=== PATIENT | female | born 1995 | race Caucasian/White ===

== ENCOUNTER 2025-08-07 02:21 | Emergency (ER) | payer MEDICAID, SELFPAY ==
--- NOTE | ~2025-08-07 | XR_ITS ---
Examination: XR chest 1V portable Clinical History: sob Comparison: None Technique: Portable AP Findings: Heart size normal. Lungs clear. No acute bony abnormality. IMPRESSION: 1. No acute cardiopulmonary findings given portable technique. Reviewed, dictated and finalized at location R.
--- OUTSIDE RECORDS SUMMARY | 2025-08-07 02:24 | XMS_ITS | Patient Health Record ---
Author Organization [facility] Address [address] [place] [address] Care Team Providers Care Delivery Department Supervisor Name Role Phone Triny Medina Unavailable [phone] Reason For Referral No Information Social History Tobacco Use: Social History Observation Description Date Details (start date - stop date) Former Smoker NA - NA PRAPARE Question Answer Notes Date Completed/Updated: 06/12/2025 What is your current housing situation? I do not have housing (staying with others, in a hotel, in a mcc, living outside on the street, on a beach, or in a park) Are you worried about losing your housing? No What is the highest level of school that you have finished? 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 Check all that apply I do not have problems meeting my needs Has lack of transportation k ept you from medical appointments, meetings, work or from getting things needed for daily living? No How often do you see or talk to people that you care about and feel close to? (For example: talking to friends on the phone, visiting friends or family, going to mosque or club meetings) 3 to 5 times a week How stressed are you? Stress is when someone feels tense, nervous, anxious, or can\t sleep at night because their mind is troubled Not at all In the past year have you sp ent more than 2 nights in a row in a custodial, senior living, group home center, or juvenile correctional facility? No Are you a refugee? No What country are you from? [place] Do you feel physically and e motionally safe where you currently live? Yes In the past year, have you b een afraid of your partner or ex-partner? No PRAPARE Score: 3 Tobacco Control (Standard) Question Answer Notes Tobacco use: Former smoker Problems Problem Type SNOMED Code ICD Code Onset Dates Problem Status W/U Status Risk Notes Problem Major depression single episode, in partial remission (17875508) Major depressive disorder in partial remission (F32.4) Active confirmed Encounters Encounter Location Date Provider Diagnosis [address] [place] [address] 06/12/2025 Triny Medina Major depressive disorder in partial remission F32.4 Assessments Encounter Date Diagnosis (ICD Code) Assessment Notes Treatment Notes Treatment Clinical Notes Section Notes 06/12/2025 Major depressive disorder in partial remission (ICD-10 - F32.4) 06/12/2025 Other Clinician met w ith client to assess needs for additional services. Clinician gathered information regarding historical presentation of mental health and substance use symptoms including withdrawal, psychiatric hospitalization history and presenting concern. Clinician conducted PHQ9 and CSSRS assessments as well as social drivers of health screening for the purposes of identifying additional service needs. Plan Of Treatment No Information Insurance Providers Payer Name Payer Address Payer Phone Subscriber Number Group Number Insured Name Patient Relationship to Insured Coverage Start Date Coverage End Date Nereida George [facility] Telehealth Attn Claims Department [address] [place] [address] [id number] Abigail Hogan Self - patient is the insured 5
[2025-08-07 02:30] VITALS: BP 111/81; PULSE 88; RESP 19; TEMP 36.4; O2SAT 100
--- NOTE | 2025-08-07 03:08 | ED_ITS ---
HPI - SOB/Dyspnea General Chief Complaint: Shortness of Breath/Dyspnea Stated Complaint: sob / body aches Time Seen by Provider: 08/07/25 02:31 History of Present Illness HPI Narrative: 30-year-old otherwise healthy female presenting to the emergency department today with several days of shortness of breath, nonproductive cough, sore throat, subjective flu-like symptoms. No sick contacts. States that she coughs frequently with a deep breath and has a rattling in her chest. Subjective fever and chills but no measurable temperature at home. No nausea, vomiting, diarrhea, chest pain. Was otherwise in her normal state of health. No around her with similar symptoms. Has a history of asthma has been using her nebulizer at home with some minimal improvement in symptoms. Taking arje-oex-ontthrj cough medicines without much improvement. Related Data Allergies Allergy/AdvReac Type Severity Reaction Status Date / Time Penicillins Allergy Mild hives Verified 08/07/25 02:24 ciprofloxacin Allergy hive Verified 08/07/25 02:24 Sulfa (Sulfonamide Allergy Hives Verified 08/07/25 02:24 Antibiotics) CIPROFLOXACIN HCL Allergy Intermediate Hives Uncoded 08/07/25 02:24 Review of Systems Review of Systems: As reviewed above in HPI Exam Narrative: GENERAL: [Well-appearing, well-nourished, and in no acute distress.] HEAD: [Normocephalic, atraumatic.] EYES: [PERRLA and EOMI.] ENT: Nares clear, no rhinorrhea or epistaxis. Mucous membranes moist. NECK: Supple. CHEST: Coarse breath sounds in the large airways, no wheezing or rales. No tachypnea. Coughing infrequently throughout the examination nonproductive. HEART: [Regular rate and rhythm]. No murmur heard. [Normal peripheral pulses.] ABDOMEN: [Soft, nondistended], [nontender], [No rigidity or guarding] EXTREMITIES: Normal range of motion. [No edema.] SKIN: Warm, dry, no rash. NEURO: [No focal deficits]. Alert and oriented [x3.] PSYCH: [Normal mood and affect.] Course Vital Signs Vital signs: Vital Signs Temperature 36.4 C 08/07/25 02:30 Pulse Rate 88 08/07/25 02:30 Respiratory Rate 19 08/07/25 02:30 Blood Pressure 111/81 08/07/25 02:30 Pulse Oximetry 100 08/07/25 02:30 Temperature 36.4 C 08/07/25 02:30 Pulse Rate 88 08/07/25 02:30 Respiratory Rate 19 08/07/25 02:30 Blood Pressure 111/81 08/07/25 02:30 Pulse Oximetry 100 08/07/25 02:30 MDM - SOB/Dyspnea MDM Narrative Medical decision making narrative: 30-year-old otherwise healthy female presenting to the emergency department today with several days of shortness of breath, nonproductive cough, sore throat, subjective flu-like symptoms. No sick contacts. States that she coughs frequently with a deep breath and has a rattling in her chest. Subjective fever and chills but no measurable temperature at home. No nausea, vomiting, diarrhea, chest pain. Was otherwise in her normal state of health. No around her with similar symptoms. Has a history of asthma has been using her nebulizer at home with some minimal improvement in symptoms. Taking sgkn-fvu-cdkrbbi cough medicines without much improvement. Patient has a nonproductive cough that sounds very congested and does have coarse breath sounds in the large airways. No wheezing or retractions. Vital signs are reassuring without any tachycardia, tachypnea, fever, hypoxemia or blood pressure concerns. Likely viral syndrome or viral illness, no posterior oropharyngeal erythema or swelling. No difficulty breathing at rest and symptoms exacerbated with a deep breath. Less likely pneumonia. No wheezing or signs of asthma exacerbation. She was given some Decadron for symptom control as well as pseudoephedrine and loratadine. Chest x-ray and viral panel swabs obtained. 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 Viral panel swabs negative, chest x-ray shows no consolidations. Patient will be treated for viral bronchitis and safely discharged home at this time. Medical Records Attestation: I reviewed the patient's medical records. Lab Data Attestation: I reviewed the patient's lab results. Labs: Lab Results 08/07/25 Range/Units 02:41 Influenza A (RT-PCR) Negative (Negative) Influenza B (RT-PCR) Negative (Negative) RSV (RT-PCR) Negative (Negative) SARS-CoV-2 RNA (RT-PCR) Negative (Negative) Imaging Data Attestation: I personally reviewed and interpreted this imaging study as follows: My impression: No consolidations. No pneumothorax. Discharge Plan Discharge Clinical Impression: Acute bronchitis with asthma Patient Disposition: Home Condition: Stable Instructions: Antibiotic Form, Acute Bronchitis (ED) Additional Instructions: No signs of pneumonia on your chest x-ray. Your viral panel swabs are negative. Symptoms consistent with viral bronchitis. We will treat this with anti- inflammatories, cough suppressing medications and decongestants. We gave you a steroid dose here which will help and his long-acting. Follow-up with regular primary care provider. Return with any emergencies. Patient Language: Estonian Prescriptions: New ibuprofen 600 mg tablet 600 mg PO TID PRN (Reason: pain) Qty: 20 0RF guaifenesin [Mucinex] 1,200 mg tablet extended release 12hr 1,200 mg PO Q12H Qty: 20 0RF benzonatate 200 mg capsule 200 mg PO TID PRN (Reason: cough) Qty: 20 0RF prednisone 50 mg tablet 50 mg PO DAILY 5 Days Qty: 5 0RF Follow-up/Referrals: UNKNOWN,DOCTOR [Primary Care Provider] Time of Disposition: 03:26
[2025-08-07] MEDS: dexAMETHasone SOD PHOS INJ 10 MG/ML 1 ML VIAL IV PUSH (03:12)
[2025-08-07] MEDS: LORATADINE/PSEUDOEPHEDRINE (*CRX) 10/240 MG TABLET ER 24 HR 1 TAB PO (03:14)
[2025-08-07 03:22] LABS: Influenza A QL RT-PCR Negative (Negative); Influenza B QL RT-PCR Negative (Negative); RSV RNA, RT-PCR Negative (Negative); SARS-CoV-2 RNA PCR Negative (Negative)
== END 2025-08-07 03:34 | disposition home or self-care (01) ==
PROVIDERS: Emergency Provider Student in an Organized Health Care Education/Training Program
DX: J20.9 Acute bronchitis, unspecified (principal); J45.909 Unspecified asthma, uncomplicated; Z20.822 Contact with and (suspected) exposure to COVID-19
CPT/HCPCS: 71045; 87637; 96374; 99284; A9270; J1100